=== PATIENT | female | born 1980 | race Caucasian/White ===

== ENCOUNTER 2019-12-28 21:36 | Emergency (ER) | payer MEDICAID ==
[~2019-12-28] VITALS: Ht 165.1 cm; Wt 72.6 kg
[2019-12-28 21:48] VITALS: Ht 165.1 cm; Wt 72.6 kg
[2019-12-28 22:23] LABS: BASOPHIL % 0.7 % (0-2); PLATELET COUNT 256 x10^3mcL (130-400); RED CELL DISTRIBUTION WIDTH 15.6 % (11.5-14.5)
[2019-12-28 22:45] LABS: CHLORIDE SERUM 101 mmol/L (98-107); CREATININE SERUM 0.9 mg/dL (0.6-1.0); GFR1 > 60 mL/min; GLUCOSE SERUM 101 mg/dL (74-106); POTASSIUM SERUM 3.5 mmol/L (3.5-5.1); SODIUM SERUM 138 mmol/L (136-145)
[2019-12-28 22:50] LABS: ALBUMIN 3.5 g/dL (3.4-5.0); ALKALINE PHOSPHATASE 115 U/L (46-116); ALT/SGPT 84 U/L (14-59); AST/SGOT 207 U/L (15-37); BILIRUBIN TOTAL 0.7 mg/dL (0.20-1.00); TOTAL PROTEIN, SERUM 7.1 g/dL (6.4-8.2)
[2019-12-28 23:31] LABS: UA SPECIFIC GRAVITY 1.025 (1.005-1.035); microscopic required? YES; urine erythrocyte 3+ (NEGATIVE)
[2019-12-28 23:39] LABS: AMPHETAMINE QUAL UR NONE DETECTED (See below)
[2019-12-29 02:05] VITALS: BP 114/77
== END 2019-12-29 02:05 | disposition home or self-care (01) ==
LOC: ED 21:36
PROVIDERS: Emergency Medicine
DX: N39.0 Urinary tract infection, site not specified (principal); F41.9 Anxiety disorder, unspecified; F10.129 Alcohol abuse with intoxication, unspecified; I10 Essential (primary) hypertension; Z86.73 Personal history of transient ischemic attack (TIA), and cerebral infarction without residual deficits; Y90.8 Blood alcohol level of 240 mg/100 ml or more
CPT/HCPCS: G0480; J0696; J2060; J2405; J7030; J7060; Q0092

== ENCOUNTER 2020-03-24 21:19 | Emergency (ER) | payer MEDICAID ==
[~2020-03-24] VITALS: Ht 165.1 cm; Wt 72.6 kg
[2020-03-24 21:34] VITALS: Ht 165.1 cm; Wt 72.6 kg
[2020-03-24 22:53] VITALS: BP 140/99
== END 2020-03-24 22:54 | disposition other institution (70) ==
LOC: ED 21:19
DX: F10.129 Alcohol abuse with intoxication, unspecified (principal); R11.10 Vomiting, unspecified; I10 Essential (primary) hypertension
CPT/HCPCS: J2765; Q0162

== ENCOUNTER 2020-03-24 22:21 | Emergency (ER) | payer OTHER | END 2020-03-24 22:54 | disposition other institution (70) | LOC: ED 22:21 | DX: Z02.89 Encounter for other administrative examinations (principal) ==